=== PATIENT | male | born 1950 | race Native Hawaiian/Other Pacific Islander ===

== ENCOUNTER 2017-09-29 15:19 | Outpatient (CLI) | payer OTHER ==
[~2017-09-29 15:19] MED LIST: ACET5TAB36 PO; AMLO10TA; ASA FREE160 MG; CLOP75TA2; DIOVAN HCT; DULO60CA2; FISH OIL300 MG; LEVAQUIN500 MG OR; METF500T; METO25TA4 OR; METOPROL TAR25 MG; TETA5INJ3 INJ; TRAM50TA PO
== END 2017-09-29 18:04 | disposition home or self-care (01) ==
LOC: RAD 15:19
DX: M25.561 Pain in right knee (principal)